=== PATIENT | male | born 1970 | race Caucasian/White ===

== ENCOUNTER → 2020-01-03 | Outpatient (CLI) | payer BC ==
--- NOTE | 2020-01-03 11:43 | ECHOS ---
STRESS ECHOCARDIOGRAM INDICATIONS: Dyspnea. MEDICATIONS: Losartan, famotidine BASELINE HEART RATE: 106 BASELINE BLOOD PRESSURE: 130/75 MAXIMUM HEART RATE: 158 MAXIMUM BLOOD PRESSURE: 202/75 85% MPHR: 146 100% MPHR: 172 METS: 12.1 MAXIMUM STAGE REACHED: 4 TOTAL EXERCISE TIME: 12:00 CLINICAL INFORMATION: Baseline rhythm is sinus mechanism, rate of 106, normal axis, intervals, minor nonspecific ST-T wave changes. Baseline blood pressure 130/75 mmHg. Patient exercised on Darrian protocol for 12 minutes, reaching peak rate 158 beats per minute, which is equal to 92% of maximum predicted heart rate. Peak blood pressure 202/75 mmHg. Test was terminated due to fatigue. There were no chest pain. Electrocardiograph monitoring revealed no evidence of diagnostic ischemic ST deviation. FINDINGS: Baseline echocardiogram revealed normal wall motion. At peak exercise, there was normal wall motion augmentation with no hypokinesis or dyskinesis. CONCLUSION: 1. Good exercise tolerance with normal echocardiograph response to exercise. 2. Normal stress echocardiogram with no evidence of stress-induced ischemia. MMODL / IJN: [id number] /
== END | disposition home or self-care (01) ==
LOC: RADNMMAIN 08:52
PROVIDERS: ATTEND Family Medicine
DX: R06.00 Dyspnea, unspecified (principal)
CPT/HCPCS: 93351